=== PATIENT | male | born 1990 | race American Indian/Alaskan Native ===

== ENCOUNTER 2019-01-07 07:48 | Emergency (ER) | payer SELFPAY ==
[2019-01-07 07:51] VITALS: BP 156/95
--- NOTE | 2019-01-07 09:07 | Emergency Department Report ---
ED Eye Problem HPI - General Chief complaint: Eye Problems Stated complaint: LT EYE PAIN Time Seen by Provider: 01/07/19 09:02 Source: patient, EMS Mode of arrival: Ambulatory Limitations: No Limitations - History of Present Illness Initial comments: Mr. Boyer is a healthy 28-year-old male who presents with eye redness irritation with discharge of the left eye for the last 6 days. 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 He did not feel as if a particle at work got into his ear. + yellow greenish discharge. Intact vision. He also has a foreign body sensation in the lower eyelid. MD chief complaint: eye redness, foreign body, other (discharge discharge) -: Gradual, days(s) (6) Location: left eye If Injury: none Eye Symptoms: burning, redness, foreign body sensation, discharge If Pain, Quality: burning Consistency: constant Associated Symptoms: none - Related Data Previous Rx's Medication Instructions Recorded Last Taken Type Ibuprofen [Motrin] 600 mg PO Q8H PRN #40 tablet 10/04/14 Unknown Rx Acetaminophen/Codeine [Tylenol 1 tab PO Q6H PRN #20 tab 04/05/16 Unknown Rx /Codeine # 3 tab] Sulfamethoxazole/Trimethoprim 1 each PO BID #20 tablet 04/05/16 Unknown Rx [Bactrim DS TAB] hydroCHLOROthiazide [HCTZ] 25 mg PO QDAY #30 tablet 05/17/16 Unknown Rx Polymyxin B Sulf/Trimethoprim 1 drop OS Q3HR 7 Days #1 bottle 01/07/19 Unknown Rx [Polytrim Eye Drops 96703uqdlz/0.1%] Allergies Allergy/AdvReac Type Severity Reaction Status Date / Time No Known Allergies Allergy Verified 01/07/19 07:49 ED Review of Systems ROS: Stated complaint: LT EYE PAIN Other details as noted in HPI Constitutional: denies: fever, malaise Eyes: eye pain, eye discharge. denies: vision change Respiratory: denies: cough, shortness of breath, wheezing ED Past Medical Hx - Past Medical History Previous Medical History?: No - Surgical History Past Surgical History?: No - Social History Smoking Status: Current Every Day Smoker Substance Use Type: Alcohol - Medications Home Medications: Home Medications Medication Instructions Recorded Confirmed Last Taken Type Ibuprofen [Motrin] 600 mg PO Q8H PRN #40 tablet 10/04/14 Unknown Rx Acetaminophen/Codeine [Tylenol 1 tab PO Q6H PRN #20 tab 04/05/16 Unknown Rx /Codeine # 3 tab] Sulfamethoxazole/Trimethoprim 1 each PO BID #20 tablet 04/05/16 Unknown Rx [Bactrim DS TAB] hydroCHLOROthiazide [HCTZ] 25 mg PO QDAY #30 tablet 05/17/16 Unknown Rx Polymyxin B Sulf/Trimethoprim 1 drop OS Q3HR 7 Days #1 bottle 01/07/19 Unknown Rx [Polytrim Eye Drops 22787agqep/0.1%] ED Physical Exam - General Limitations: No Limitations General appearance: alert, in no apparent distress - Head Head exam: Present: atraumatic, normocephalic - Eye Eye exam: Present: PERRL, conjunctival injection. Absent: scleral icterus, nystagmus, periorbital swelling, periorbital tenderness - Expanded Eye Exam Expanded Pupils: Regular, Round: Bilateral Sclera/Conjunctival: Injection: Left, Foreign Body: Left (no foreign body present) Anterior chamber: Normal Inspection: Left Posterior chamber: Deferred: Left ED Course Vital Signs 01/07/19 07:49 Temperature 98.1 F Pulse Rate 101 H Respiratory 20 Rate Blood Pressure 156/95 O2 Sat by Pulse 98 Oximetry ED Medical Decision Making - Medical Decision Making Acute conjunctivitis Polytrim drops lid sweep with cotton-tipped applicator did not reveal any foreign body Critical care attestation.: If time is entered above; I have spent that time in minutes in the direct care of this critically ill patient, excluding procedure time. ED Disposition Clinical Impression: Acute conjunctivitis of left eye Disposition: DC-01 TO HOME OR SELFCARE Is pt being admited?: No Does the pt Need Aspirin: No Condition: Stable Instructions: Conjunctivitis (ED) Additional Instructions: Please have your eyes checked this week. Prescriptions: Polymyxin B Sulf/Trimethoprim [Polytrim Eye Drops [id number]/0.1%] 1 drop OS Q3HR 7 Days #1 bottle Referrals: SHANICE ZAFAR MD [Staff Physician] - 3-5 Days
== END 2019-01-07 09:24 | disposition home or self-care (01) ==
LOC: ED 07:48
DX: H10.32 Unspecified acute conjunctivitis, left eye (principal); F17.200 Nicotine dependence, unspecified, uncomplicated
CPT/HCPCS: 99283

== ENCOUNTER 2019-04-10 08:46 | Emergency (ER) | payer SELFPAY ==
[2019-04-10] MEDS ORDERED: BOOSTRIX IM ONE (09:08)
--- NOTE | 2019-04-10 09:17 | Emergency Department Report ---
ED Extremity Problem HPI - General Chief complaint: Extremity Problem,Nontraumatic Stated complaint: RT LEG SPRIDER BITE/PAIN Time Seen by Provider: 04/10/19 09:00 Source: patient Mode of arrival: Ambulatory Limitations: No Limitations - History of Present Illness Initial comments: Pt is a 28 yo male who presents to the ED with c/o right lower leg pain that began yesterday. Pt states he believes he was bit by a "spider." he denies seeing or feeling anything bite him. he denies any drainage, redness of the leg, or fever. pt is unsure of his last tetanus immunization. pt has a hx of chronic bilateral LE edema for "several years." he states he was diagnosed with HTN a few years ago and started on BP medication but has not taken it since completing the one month supply. pt never followed up with a PCP. pt states he has not seen a PCP in several years. - Related Data Previous Rx's Medication Instructions Recorded Last Taken Type Ibuprofen [Motrin] 600 mg PO Q8H PRN #40 tablet 10/04/14 Unknown Rx Acetaminophen/Codeine [Tylenol 1 tab PO Q6H PRN #20 tab 04/05/16 Unknown Rx /Codeine # 3 tab] Sulfamethoxazole/Trimethoprim 1 each PO BID #20 tablet 04/05/16 Unknown Rx [Bactrim DS TAB] Polymyxin B Sulf/Trimethoprim 1 drop OS Q3HR 7 Days #1 bottle 01/07/19 Unknown Rx [Polytrim Eye Drops [id number]/0.1%] Neomycin/Bacitracin/Polymyxinb 1 applic TP TID #1 oint...g. 04/10/19 Unknown Rx [Triple Antibiotic Ointment] hydroCHLOROthiazide [HCTZ] 25 mg PO QDAY #30 tablet 04/10/19 Unknown Rx Allergies Allergy/AdvReac Type Severity Reaction Status Date / Time No Known Allergies Allergy Verified 01/07/19 07:49 ED Review of Systems ROS: Stated complaint: RT LEG SPRIDER BITE/PAIN Other details as noted in HPI Comment: All other systems reviewed and negative ED Past Medical Hx - Past Medical History Previous Medical History?: No - Surgical History Past Surgical History?: No - Social History Smoking Status: Never Smoker - Medications Home Medications: Home Medications Medication Instructions Recorded Confirmed Last Taken Type Ibuprofen [Motrin] 600 mg PO Q8H PRN #40 tablet 10/04/14 Unknown Rx Acetaminophen/Codeine [Tylenol 1 tab PO Q6H PRN #20 tab 04/05/16 Unknown Rx /Codeine # 3 tab] Sulfamethoxazole/Trimethoprim 1 each PO BID #20 tablet 04/05/16 Unknown Rx [Bactrim DS TAB] Polymyxin B Sulf/Trimethoprim 1 drop OS Q3HR 7 Days #1 bottle 01/07/19 Unknown Rx [Polytrim Eye Drops [id number]/0.1%] Neomycin/Bacitracin/Polymyxinb 1 applic TP TID #1 oint...g. 04/10/19 Unknown Rx [Triple Antibiotic Ointment] hydroCHLOROthiazide [HCTZ] 25 mg PO QDAY #30 tablet 04/10/19 Unknown Rx ED Physical Exam - General Limitations: No Limitations General appearance: alert, in no apparent distress - Head Head exam: Present: atraumatic, normocephalic - Eye Eye exam: Present: normal appearance - ENT ENT exam: Present: mucous membranes moist - Extremities Exam Extremities exam: Present: other (small scab present to the right anterior bonds, no drainage, no increased warmth, no erythema, chronic, equal bilateral non pitting edema of the lower extremities, no calf tenderness, ultrasound used and shows strong dp and pt pulses of the right leg, brisk cap refill) - Neurological Exam Neurological exam: Present: alert, oriented X3 - Psychiatric Psychiatric exam: Present: normal affect, normal mood - Skin Skin exam: Present: warm, dry ED Course Vital Signs 04/10/19 04/10/19 08:55 09:49 Temperature 98.4 F Pulse Rate 108 H 96 H Respiratory 18 Rate Blood Pressure 160/117 Blood Pressure 169/105 [Right] O2 Sat by Pulse 100 Oximetry ED Medical Decision Making - Medical Decision Making Pt is a 28 yo male who presents to the ED with c/o right lower leg pain that began yesterday. Pt states he believes he was bit by a "spider." he denies seeing or feeling anything bite him. he denies any drainage, redness of the leg, or fever. pt is unsure of his last tetanus immunization. pt has a hx of chronic bilateral LE edema for "several years." he states he was diagnosed with HTN a few years ago and started on BP medication but has not taken it since completing the one month supply. pt never followed up with a PCP. pt states he has not seen a PCP in several years. on exam: small scab present to the right anterior bonds, no drainage, no increased warmth, no erythema, chronic, equal bilateral non pitting edema of the lower extremities, no calf tenderness, ultrasound used and shows strong dp and pt pulses of the right leg, brisk cap refill. pt has been worked up in the ED previously for the chronic BLE edema, had a normal US LE, had normal blood work previously showing normal BNP, normal kidney function, and normal liver function. chronic bilateral LE edema appears most likely from a venous insufficiency. discussed with pt to use compression stockings while on his feet and elevate the legs when resting. pts blood pressure has been elevated during prior ED visits and pt was started on hctz. pt only took the one month supply. will resume the hctz due to BP being elevated again during todays visit. discussed with pt to keep a BP log and eat a low sodium diet. discussed with pt the chronic risks associated with untreated BP. discussed with pt the importance of follow up with a primary care doctor in the next 2-3 days for management of this chronic condition and to monitor laboratory testing. discussed with pt smoking and alcohol cessation or reduction. advised to return to the ED for any new or worsening symptoms. - Differential Diagnosis abscess, cellulitis, abrasion, PAD, venous insuffienciency Critical care attestation.: If time is entered above; I have spent that time in minutes in the direct care of this critically ill patient, excluding procedure time. ED Disposition Clinical Impression: Abrasion, right lower leg, initial encounter, Bilateral lower extremity edema, Elevated blood pressure reading Disposition: DC-01 TO HOME OR SELFCARE Is pt being admited?: No Does the pt Need Aspirin: No Condition: Stable Instructions: Insect Bite or Sting (ED), Chronic Hypertension (ED), Leg Edema (ED), Abrasion (ED) Additional Instructions: please take medication as prescribed. please use ointment as prescribed. will resume the blood pressure medication you were started on previously. it is very important you follow up with a primary care doctor in the next 2-3 days for further management and evaluation. given a list of community clinics. return to the emergency room for any new or worsening symptoms or any signs of infection. keep a blood pressure log, eat a low sodium diet, and when standing on your feet for long periods wear compression stockings and elevate your legs when you are off of them. Prescriptions: hydroCHLOROthiazide [HCTZ] 25 mg PO QDAY #30 tablet Neomycin/Bacitracin/Polymyxinb [Triple Antibiotic Ointment] 1 applic TP TID #1 oint...g. Referrals: [facility] [Provider Group] - 3-5 Days [facility] [Outside] - 3-[address] [facility] [Outside] - 3-5 Days Time of Disposition: 09:19 Print Language: DIVEHI
[2019-04-10 09:50] VITALS: BP 169/105
== END 2019-04-10 10:00 | disposition home or self-care (01) ==
LOC: ED 08:46
DX: S80.811A Abrasion, right lower leg, initial encounter (principal); I10 Essential (primary) hypertension; Z79.899 Other long term (current) drug therapy; X58.XXXA Exposure to other specified factors, initial encounter; Y93.89 Activity, other specified; Y92.89 Other specified places as the place of occurrence of the external cause; Y99.8 Other external cause status
CPT/HCPCS: 90471; 90715

== ENCOUNTER 2020-06-21 23:22 | Emergency (ER) | payer SELFPAY ==
--- NOTE | 2020-06-22 02:35 | Emergency Department Report ---
ED Extremity Problem HPI - General Chief complaint: Extremity Problem,Nontraumatic Stated complaint: FOOT Source: patient Mode of arrival: Ambulatory Limitations: No Limitations - History of Present Illness Initial comments: Patient is a 29-year-old -[place] male with a history of morbid obesity and hypertension who presents to the ED with complaint of acute onset persistent dorsal left foot pain and swelling due to erythematous ulcerated maculopapular rash for the last 2 days. Patient states that he usually wears tight fitting boots and about 2 days ago he noticed the ulcerated wound on the dorsal left foot which was small. Patient states that subsequently the wound has enlarged and spread to cover the entire dorsal left foot and he applied some ointment which ended up making the pain worse on the ulcer even more painful and worse. Patient denies fever, chills, traumatic injury, fall, chest pain or shortness of breath, dizziness, syncope, chest pain, numbness and tingling or weakness of left foot or left leg. MD Complaint: extremity pain (left foot pain and swelling due to ulcerated wound), extremity swelling (left foot) -: Sudden, days(s) (2) Location: left, lower extremity (left foot) History of Same: No -: Yes myalgia, No arthralgia, No fever, No associated dyspnea, No associated chest pain Radiation: none Severity scale (0 -10): 4 Quality: aching, sharp Consistency: constant Improves with: nothing Worsens with: nothing Associated Symptoms: denies other symptoms, rash (Ulcerated open wound on dorsal left foot). denies: chest pain, shortness of breath, fever, myalgias, arthralgias - Related Data Previous Rx's Medication Instructions Recorded Last Taken Type Ibuprofen [Motrin] 600 mg PO Q8H PRN #40 tablet 10/04/14 Unknown Rx Acetaminophen/Codeine [Tylenol 1 tab PO Q6H PRN #20 tab 04/05/16 Unknown Rx /Codeine # 3 tab] Polymyxin B Sulf/Trimethoprim 1 drop OS Q3HR 7 Days #1 bottle 01/07/19 Unknown Rx [Polytrim Eye Drops [id number]/0.1%] Neomycin/Bacitracin/Polymyxinb 1 applic TP TID #1 oint...g. 04/10/19 Unknown Rx [Triple Antibiotic Ointment] hydroCHLOROthiazide [HCTZ] 25 mg PO QDAY #30 tablet 04/10/19 Unknown Rx Lisinopril/Hydrochlorothiazide 1 tab PO QDAY #30 tab 04/27/19 Unknown Rx [Zestoretic 20-25 mg] Ibuprofen [Motrin] 800 mg PO Q8HR PRN #30 tablet 06/22/20 Unknown Rx Mupirocin [Bactroban 2% OINT] 1 applic TP TID #1 tube 06/22/20 Unknown Rx Sulfamethoxazole/Trimethoprim 1 each PO BID #20 tablet 06/22/20 Unknown Rx [Bactrim DS TAB] Allergies Allergy/AdvReac Type Severity Reaction Status Date / Time No Known Allergies Allergy Verified 01/07/19 07:49 ED Review of Systems ROS: Stated complaint: FOOT Other details as noted in HPI Constitutional: denies: chills, fever Eyes: denies: eye pain, eye discharge, vision change ENT: denies: ear pain, throat pain Respiratory: denies: cough, shortness of breath, wheezing Cardiovascular: denies: chest pain, palpitations Endocrine: no symptoms reported Gastrointestinal: denies: abdominal pain, nausea, diarrhea Genitourinary: denies: urgency, dysuria Musculoskeletal: arthralgia (left foot pain swelling and dorsall left foot ulcerated wound), myalgia. denies: back pain, joint swelling Skin: other (Ulcerated open wound on dorsal left foot with pain.). denies: rash, lesions Neurological: denies: headache, weakness, paresthesias Psychiatric: denies: anxiety, depression Hematological/Lymphatic: denies: easy bleeding, easy bruising ED Past Medical Hx - Past Medical History Previous Medical History?: Yes Hx Hypertension: Yes - Surgical History Past Surgical History?: No - Social History Smoking Status: Never Smoker Substance Use Type: None - Medications Home Medications: Home Medications Medication Instructions Recorded Confirmed Last Taken Type Ibuprofen [Motrin] 600 mg PO Q8H PRN #40 tablet 10/04/14 Unknown Rx Acetaminophen/Codeine [Tylenol 1 tab PO Q6H PRN #20 tab 04/05/16 Unknown Rx /Codeine # 3 tab] Polymyxin B Sulf/Trimethoprim 1 drop OS Q3HR 7 Days #1 bottle 01/07/19 Unknown Rx [Polytrim Eye Drops [id number]/0.1%] Neomycin/Bacitracin/Polymyxinb 1 applic TP TID #1 oint...g. 04/10/19 Unknown Rx [Triple Antibiotic Ointment] hydroCHLOROthiazide [HCTZ] 25 mg PO QDAY #30 tablet 04/10/19 Unknown Rx Lisinopril/Hydrochlorothiazide 1 tab PO QDAY #30 tab 04/27/19 Unknown Rx [Zestoretic 20-25 mg] Ibuprofen [Motrin] 800 mg PO Q8HR PRN #30 tablet 06/22/20 Unknown Rx Mupirocin [Bactroban 2% OINT] 1 applic TP TID #1 tube 06/22/20 Unknown Rx Sulfamethoxazole/Trimethoprim 1 each PO BID #20 tablet 06/22/20 Unknown Rx [Bactrim DS TAB] ED Physical Exam - General Limitations: No Limitations General appearance: alert, in no apparent distress - Head Head exam: Present: atraumatic, normocephalic, normal inspection - Eye Eye exam: Present: normal appearance, PERRL, EOMI Pupils: Present: normal accommodation - ENT ENT exam: Present: normal exam, normal orophraynx, mucous membranes moist, TM's normal bilaterally, normal external ear exam - Neck Neck exam: Present: normal inspection, full ROM - Respiratory Respiratory exam: Present: normal lung sounds bilaterally. Absent: respiratory distress, wheezes, rales, rhonchi, stridor, chest wall tenderness, accessory muscle use, decreased breath sounds, prolonged expiratory - Cardiovascular Cardiovascular Exam: Present: regular rate, normal rhythm, normal heart sounds. Absent: systolic murmur, diastolic murmur, rubs, gallop - GI/Abdominal GI/Abdominal exam: Present: soft, normal bowel sounds. Absent: distended, tenderness, guarding, hyperactive bowel sounds, hypoactive bowel sounds, organomegaly - Extremities Exam Extremities exam: Present: normal inspection, full ROM, tenderness (Palpable mild dorsal left foot tenderness with mild swelling due to ulcerated open wound), normal capillary refill, joint swelling - Back Exam Back exam: Present: normal inspection, full ROM. Absent: tenderness, CVA tenderness (R), CVA tenderness (L), muscle spasm, paraspinal tenderness, vertebral tenderness - Neurological Exam Neurological exam: Present: alert, oriented X3, CN II-XII intact, normal gait, reflexes normal - Psychiatric Psychiatric exam: Present: normal affect, normal mood - Skin Skin exam: Present: warm, dry, intact, normal color, erythema, other (Ulcerated erythematous maculopapular rash on dorsal left foot with tenderness). Absent: rash ED Course Vital Signs 06/21/20 23:26 Temperature 98.7 F Pulse Rate 112 H Respiratory 18 Rate Blood Pressure 156/99 [Right] O2 Sat by Pulse 96 Oximetry ED Medical Decision Making - Medical Decision Making This is a 29-year-old -[place] male with a history of morbid obesity and hypertension who presents to the ED with complaint of acute onset persistent dorsal left foot pain and swelling due to erythematous ulcerated maculopapular rash for the last 2 days. Patient states that he usually wears tight fitting boots and about 2 days ago he noticed the ulcerated wound on the dorsal left foot which was small. Patient states that subsequently the wound has enlarged and spread to cover the entire dorsal left foot and he applied some ointment which ended up making the pain worse on the ulcer even more painful and worse. In the ED, patient is alert and oriented x3 and is not in distress but tachycardic and afebrile in triage. On reevaluation, patient's tachycardia resolved, patient is fully ambulatory in the ED with no difficulty. Therefore based on the physical exam findings, the patient was discharged home on medications including pain medications, oral antibiotics and antibiotic ointment, and was advised to follow-up with his primary care physician in 7 to 10 days for reevaluation or return to the ED immediately if symptoms get worse. - Differential Diagnosis Cellulitis; foot ulcer; foot abrasion Critical care attestation.: If time is entered above; I have spent that time in minutes in the direct care of this critically ill patient, excluding procedure time. ED Disposition Clinical Impression: Localized swelling of left foot Pressure ulcer of dorsum of left foot Qualifiers: Pressure injury stage: unstageable Qualified Code(s): L89.890 - Pressure ulcer of other site, unstageable Disposition: DC-01 TO HOME OR SELFCARE Is pt being admited?: No Does the pt Need Aspirin: No Condition: Stable Instructions: Pressure Injury, Foot Pain Additional Instructions: Take medication with food, drink plenty of fluids and follow-up with your primary care physician in 7 to 10 days for reevaluation. Return to the ED immediately if symptoms get worse. Prescriptions: Sulfamethoxazole/Trimethoprim [Bactrim DS TAB] 1 each PO BID #20 tablet Mupirocin [Bactroban 2% OINT] 1 applic TP TID #1 tube Ibuprofen [Motrin] 800 mg PO Q8HR PRN #30 tablet PRN Reason: Pain , Severe (7-10) Referrals: [facility] [Provider Group] - 7-10 days Time of Disposition: 02:35 Print Language: SLOV[place]
[2020-06-22 02:50] VITALS: BP 147/90
== END 2020-06-22 02:47 | disposition home or self-care (01) ==
LOC: ED 23:22
DX: L89.890 Pressure ulcer of other site, unstageable (principal); R22.42 Localized swelling, mass and lump, left lower limb; E66.01 Morbid (severe) obesity due to excess calories; I10 Essential (primary) hypertension; Z68.41 Body mass index [BMI] 40.0-44.9, adult; Z79.899 Other long term (current) drug therapy
CPT/HCPCS: 99282